=== PATIENT | male | born 1955 | race Caucasian/White ===

== ENCOUNTER 2017-02-08 10:07 | Emergency (ER) | payer BC ==
[~2017-02-08 10:07] MED LIST: ISOVUE-370 76%-LOCM 1 ML ONE; Iopamidol 370 76% 50 ML VIAL FS ONE
[2017-02-08] MEDS ORDERED: Ondansetron HCl/PF 4 MG/2 ML Vial ONE (10:38)
[2017-02-08 10:56] LABS: #Basophils 0.1 thou/uL (0.0-0.2); #Eosinphils 0.3 thou/uL (0.0-0.7); #Lymphocytes 2.9 thou/uL (1.20-3.40); #Monocytes 0.7 thou/uL (0.11-0.59); #Neutrophils 5.4 thou/uL (1.40-6.50); %Basophils 0.8 % (0.0-1.0); %Eosinophils 2.8 % (0.0-10.0); %Lymphocytes 30.8 % (21.0-51.0); %Monocytes 7.7 % (0.0-10.0); Hematocrit 53.2 % (42.0-52.0); Mean Platelet Volume 6.5 fL (7.4-10.4); Red Blood Cell (RBC) Count 5.44 mill/uL (4.70-6.10); White Blood Cell (WBC) Count 9.3 thou/uL (4.8-10.8)
[2017-02-08] MEDS ORDERED: Piperacillin/Tazobactam 3.375 GM VIAL ONE (11:10)
[2017-02-08 11:30] LABS: ALT (SGPT) 41 U/L (8-55); AST (SGOT) 24 U/L (5-34); Alkaline Phosphatase 72 U/L (40-150); Anion Gap 12 mmol/L (10-20); BUN (Urea Nitrogen) 14 mg/dL (8.4-25.7); Bilirubin, Total 0.6 mg/dL (0.2-1.2); Calc. Creatinine Clearance 0 mL/min (70-130); Calcium 9.3 mg/dL (7.8-10.44); Carbon Dioxide 26 mmol/L (23-31); Chloride 103 mmol/L (98-107); Estimated GFR-MDRD 61; Globulin 3.3 g/dL (2.4-3.5); Protein, Total 7.3 g/dL (5.8-8.1)
[2017-02-08 11:44] LABS: Bilirubin Negative (Negative); Blood, Urine Trace (Negative); Glucose, Urine (Dipstick) Negative (Negative); Ketone, Urine Negative (Negative); Nitrite Negative (Negative); Protein, Urine (Dipstick) Negative (Neg-Trace); Urobilinogen 0.2 mg/dL (0.2-1.0)
[2017-02-08 11:56] LABS: Squamous Epithelial 0-3 HPF (0-3); WBC/HPF 0-3 HPF (0-3)
[2017-02-08 11:57] LABS: Bacteria/HPF None Seen HPF (None Seen); Hyaline Casts/LPF 0-3 HYALINE CAST LPF (0-3 Hyaline)
--- NOTE | 2017-02-08 12:39 | CT ---
CONTRAST ENHANCED CT IMAGES OF ABDOMEN AND PELVIS: DATE: 02/08/17. FINDINGS: IV and oral contrast was given. The lung bases are unremarkable. No evidence of free intraperitoneal air is seen. The liver is unremarkable, except for some small hypodense areas most compatible with hepatic cysts. The gallbladder is unremarkable. The spleen is unremarkable. Pancreas is unremarkable. Adrenal glands are unremarkable. Right renal cortical and parapelvic cysts seen. The left kidney is unremarkable. No evidence of re nal calculi or evidence of hydronephrosis is seen. Atherosclerotic calcification of the abdominal aorta is seen. The small bowel loops are unremarkable. A normal appendix is seen. Descending and sigmoid colonic diverticula are seen. There is mild abdominal aortic aneurysmal dilatation in the infrarenal abdominal aorta. Maximum abd ominal diameter measures 2.7 x 2.6 cm in the infrarenal abdominal aorta. This compares with a diame ter of approximately 2.1 cm just at the level of the renal arteries. IMPRESSION: 1. Small infrarenal abdominal aortic area of aneurysmal dilatation. 2. Descending colonic diverticulosis. POS: PAMELA
== END 2017-02-08 13:35 | disposition home or self-care (01) ==
LOC: ERS 10:07
DX: I71.4 Abdominal aortic aneurysm, without rupture (principal); N28.1 Cyst of kidney, acquired; F41.9 Anxiety disorder, unspecified; F17.210 Nicotine dependence, cigarettes, uncomplicated
CPT/HCPCS: 36415; 74177; 80053; 81003; 81015; 85025; 96365; 96375; J2270; J2405; J2543

== ENCOUNTER 2021-03-14 12:15 | Inpatient (IN) | payer MEDICARE ==
[2021-03-18 11:47] VITALS: BMI 25.0
[2021-03-19] MEDS ORDERED: cefOXitin Sodium/Dextrose 2 GM/50 ML BAG ONE (09:24)
[2021-03-19] MEDS ORDERED: Fentanyl 250 MCG/5 ML VIAL ONE (10:29)
[2021-03-19] MEDS ORDERED: SUGAMMADEX SODIUM 200 MG/2 ML VIAL ONE (10:29)
[2021-03-19] MEDS ORDERED: PHENYLEPHRINE-NS 100 MCG/ML 10 ML SYRINGE ONE (10:49)
[2021-03-19] MEDS ORDERED: Ondansetron PF 4 MG/2 ML Vial ONE (10:49)
[2021-03-19] MEDS ORDERED: Lidocaine 1% PF 5 ML VIAL ONE (10:49)
[2021-03-19] MEDS ORDERED: Rocuronium Bromide 10 MG/ML (10ML VIAL) ONE (10:49)
[2021-03-19] MEDS ORDERED: PROPOFOL 200 MG/20 ML VIAL ONE (10:49)
[2021-03-19] MEDS ORDERED: Ketorolac Tromethamine 30 MG/ML VIAL ONE (10:49)
[2021-03-19] MEDS ORDERED: Dexamethasone 20 MG/5 ML VIAL ONE (10:49)
[2021-03-19] MEDS ORDERED: Bupivacaine HCl 0.5%/Epinephrine 1:200,000/PF 30 ml Vial ONE (10:49)
[2021-03-19] MEDS ORDERED: Glycopyrrolate 0.2 MG/ML 5 ML SYRINGE ONE (10:49)
[2021-03-19] MEDS ORDERED: Promethazine HCl 25 MG/ML VIAL IVPB PRN (11:58)
[2021-03-19] MEDS ORDERED: Ondansetron HCl/PF 4 MG/2 ML Vial IVP PRN (11:58)
[2021-03-19] MEDS ORDERED: Promethazine HCl 25 MG/ML VIAL IM PRN ×2 (11:58→13:15)
[2021-03-19] MEDS ORDERED: hydrALAZINE 20 MG/ML VIAL SLOW IVP PRN (13:15)
[2021-03-19] MEDS ORDERED: Ondansetron PF 4 MG/2 ML Vial IVP PRN (13:15)
[2021-03-19] MEDS ORDERED: Fentanyl 100 MCG/2 ML VIAL ONE (13:38)
[2021-03-19] MEDS ORDERED: FLU VACC QS2021-22(65YR UP)/PF 240 MCG/0.7 ML SYRINGE IM ONE (15:45)
[2021-03-19] MEDS: D5 1/2 NS w/20 mEq KCL 1,000 ML IV SCH (16:52)
[2021-03-19] MEDS: Ketorolac Tromethamine 30 MG/ML VIAL IVP PRN (16:53)
[2021-03-19] MEDS: Fentanyl 100 MCG/2 ML VIAL SLOW IVP PRN ×2 (18:21→21:03)
[2021-03-19] MEDS: Famotidine 20 MG TAB PO SCH (20:38)
[2021-03-19] MEDS: cefOXitin 2 GM in Sodium Chloride 0.9% 100 ML IVPB SCH (20:38)
[2021-03-19] MEDS: Famotidine/PF 20 mg/2ml Vial SLOW IVP SCH (20:38)
[2021-03-20] MEDS: D5 1/2 NS w/20 mEq KCL 1,000 ML IV SCH ×2 (02:54→02:55)
[2021-03-20] MEDS: cefOXitin 2 GM in Sodium Chloride 0.9% 100 ML IVPB SCH (02:56)
[2021-03-20] MEDS: Fentanyl 100 MCG/2 ML VIAL SLOW IVP PRN ×2 (02:58)
[2021-03-20 06:18] LABS: #Lymphocytes 1.6 thou/uL (1.20-3.40); #Monocytes 1.2 thou/uL (0.11-0.59); #Neutrophils 12.8 thou/uL (1.40-6.50); %Eosinophils 0.1 % (0.0-10.0); %Lymphocytes 10.4 % (21.0-51.0); %Monocytes 7.9 % (0.0-10.0); %Neutrophils 81.6 % (42.0-75.0); Hemoglobin 14.2 g/dL (14.0-18.0); Mean Corpuscular HGB CONC 33.4 g/dL (32.0-36.0); Mean Corpuscular Hemoglobin 33.4 pg (27.0-31.0); Mean Corpuscular Volume 99.9 fL (78.0-98.0); Mean Platelet Volume 6.5 fL (7.4-10.4); Platelet Count 203 thou/uL (130-400); RBC Distribution Width 12.1 % (11.5-14.5); Red Blood Cell (RBC) Count 4.27 mill/uL (4.70-6.10); White Blood Cell (WBC) Count 15.7 thou/uL (4.8-10.8)
[2021-03-20 06:34] LABS: Anion Gap 10 mmol/L (10-20); BUN (Urea Nitrogen) 10 mg/dL (8.4-25.7); Calc. Creatinine Clearance 70 mL/min (70-130); Calcium 8.7 mg/dL (7.8-10.44); Carbon Dioxide 22 mmol/L (23-31); Chloride 107 mmol/L (98-107); Glucose 137 mg/dL (80-115); Potassium 4.9 mmol/L (3.5-5.1); Sodium 134 mmol/L (136-145)
[2021-03-20] MEDS: Famotidine 20 MG TAB PO SCH ×2 (08:05→20:34)
[2021-03-20] MEDS ORDERED: FLU VACC QS2021-22(65YR UP)/PF 240 MCG/0.7 ML SYRINGE IM ONE (09:00)
[2021-03-20] MEDS: Ketorolac Tromethamine 30 MG/ML VIAL IVP PRN (09:06)
[2021-03-20] MEDS: Famotidine/PF 20 mg/2ml Vial SLOW IVP SCH ×2 (10:21→20:34)
[2021-03-20] MEDS: Enoxaparin Sodium 40 MG/0.4 ML SYRINGE SC SCH (10:39)
[2021-03-20] MEDS: HYDROcodone/Acetaminophen 7.5/325 mg Tablet PO PRN ×2 (11:21→18:28)
[2021-03-20] MEDS ORDERED: Valsartan 80 MG TAB PO SCH ×2 (12:00→21:00)
[2021-03-20] MEDS ORDERED: Escitalopram Oxalate 10 mg Tablet PO SCH (12:00)
[2021-03-20] MEDS ORDERED: Acetaminophen 325 MG TAB PO PRN (12:52)
[2021-03-20] MEDS ORDERED: ALPRAZolam 0.5 MG TAB PO PRN (13:11)
[2021-03-21] MEDS: HYDROcodone/Acetaminophen 7.5/325 mg Tablet PO PRN (07:16)
[2021-03-21] MEDS: Famotidine 20 MG TAB PO SCH (07:16)
[2021-03-21 08:29] VITALS: BP 126/83; TEMP 98
[2021-03-21] MEDS: Enoxaparin Sodium 40 MG/0.4 ML SYRINGE SC SCH (09:10)
[2021-03-21] MEDS: Famotidine/PF 20 mg/2ml Vial SLOW IVP SCH (09:12)
== END 2021-03-21 10:20 | disposition home or self-care (01) | DRG 331 ==
LOC: EDSTATUS 12:15 → SURG A 03-19 07:52 → SURG B 03-19 15:51
PROVIDERS: ADMIT Surgery; ATTEND Surgery
PROC: 0DBF4ZZ Excision of Right Large Intestine, Percutaneous Endoscopic Approach (ICD-10-PCS; principal; 2021-03-19)
DX: K63.5 Polyp of colon (principal); Z20.822 Contact with and (suspected) exposure to COVID-19; I71.4 Abdominal aortic aneurysm, without rupture; F41.9 Anxiety disorder, unspecified; E78.00 Pure hypercholesterolemia, unspecified; E78.5 Hyperlipidemia, unspecified; G47.30 Sleep apnea, unspecified; F17.210 Nicotine dependence, cigarettes, uncomplicated; Z79.899 Other long term (current) drug therapy
CPT/HCPCS: 36415; 80048; 85025; 88307; 90471; 90662; 90732; G0008; G0009; J0694; J1100; J1650; J1885; J2405; J2704; J3010; J3480; J3490; S0028

== ENCOUNTER 2021-03-14 12:18 | Outpatient (CLI) | payer MEDICARE ==
[2021-03-14 13:50] LABS: Anion Gap 16 mmol/L (10-20); BUN (Urea Nitrogen) 13 mg/dL (8.4-25.7); Calc. Creatinine Clearance 0 mL/min (70-130); Calcium 9.1 mg/dL (7.8-10.44); Carbon Dioxide 23 mmol/L (23-31); Chloride 104 mmol/L (98-107); Glucose 111 mg/dL (80-115); Potassium 4.1 mmol/L (3.5-5.1); Sodium 139 mmol/L (136-145)
[2021-03-14 14:10] LABS: #Basophils 0.1 10x3/uL (0.0-0.2); #Eosinphils 0.2 10x3/uL (0.0-0.5); #Monocytes 0.6 10x3/uL (0.0-1.1); #Neutrophils 5.1 10x3/uL (1.5-8.4); %Basophils 0.9 % (0.0-2.0); %Eosinophils 2.4 % (0.0-6.0); %Lymphocytes 29.9 % (18.0-47.0); %Monocytes 7.2 % (0.0-10.0); %Neutrophils 59.3 % (40.0-75.0); Hemoglobin 15.6 g/dL (13.5-17.5); Mean Corpuscular HGB CONC 34.3 g/dL (32.0-36.0); Mean Corpuscular Hemoglobin 32.5 pg (27.0-33.0); Mean Corpuscular Volume 94.8 fl (81.2-95.1); Mean Platelet Volume 9.2 fl (7.4-10.4); Platelet Count 228 10x3/uL (150-450); RBC Distribution Width 13.3 % (11.5-14.5); White Blood Cell (WBC) Count 8.7 10x3/uL (3.5-10.5)
[2021-03-15 11:54] LABS: SARS-CoV-2 PCR by NAA Not Detected (NotDetected)
== END 2021-03-14 12:19 | disposition home or self-care (01) ==
LOC: LABBT 12:18
PROVIDERS: ATTEND Surgery
DX: Z01.818 Encounter for other preprocedural examination (principal); K63.9 Disease of intestine, unspecified; Z20.822 Contact with and (suspected) exposure to COVID-19
CPT/HCPCS: 80048; 85025; 93005; U0003; U0005; 93010

== ENCOUNTER 2022-12-18 10:59 | Outpatient (CLI) | payer MEDICARE, OTHER ==
[2022-12-18 12:47] LABS: Hematocrit 46.2 % (38.8-50.0); Hemoglobin 15.7 g/dL (13.5-17.5); Mean Corpuscular Hemoglobin 33.1 pg (27.0-33.0); Mean Corpuscular Volume 97.5 fl (81.2-95.1); Mean Platelet Volume 9.2 fl (7.4-10.4); Platelet Count 248 10x3/uL (150-450); RBC Distribution Width 13.1 % (11.5-14.5); Red Blood Cell (RBC) Count 4.74 10x6/uL (4.32-5.72)
[2022-12-18 12:59] LABS: PTT 27.9 sec (22.0-33.0); Prothrombin Time 10.4 sec (9.5-12.1)
[2022-12-18 13:08] LABS: ALT (SGPT) 34 U/L (8-55); AST (SGOT) 31 U/L (5-34); Albumin 4.1 g/dL (3.4-4.8); Alkaline Phosphatase 68 U/L (40-110); Anion Gap 16 mmol/L (10-20); BUN (Urea Nitrogen) 14 mg/dL (8.4-25.7); Bilirubin, Total 0.7 mg/dL (0.2-1.2); Calc. Creatinine Clearance 0 mL/min (70-130); Calcium 9.4 mg/dL (7.8-10.44); Carbon Dioxide 23 mmol/L (23-31); Chloride 102 mmol/L (98-107); Estimated GFR 70; Globulin 2.8 g/dL (2.4-3.5); Glucose 106 mg/dL (80-115); Potassium 4.3 mmol/L (3.5-5.1); Protein, Total 6.9 g/dL (5.8-8.1); Sodium 137 mmol/L (136-145)
[2022-12-18 13:31] LABS: Bilirubin Neg (Negative); Blood, Urine Negative (Negative); Clarity Clear (Clear); Glucose, Urine (Dipstick) Normal (Negative); Ketone, Urine Negative (Negative); Leukocyte 100 (Negative); Nitrite Negative (Negative); Protein, Urine (Dipstick) Negative (Neg-Trace); Urobilinogen Normal mg/dL (Less than 2)
[2022-12-18 13:47] LABS: Bacteria/HPF 1+ HPF (None Seen); RBC/HPF 0-3 HPF (0-3); Squamous Epithelial 0-3 HPF (0-3)
== END 2022-12-18 11:00 | disposition home or self-care (01) ==
LOC: LABBT 10:59
PROVIDERS: ATTEND Urology
DX: Z01.818 Encounter for other preprocedural examination (principal); I71.40 Abdominal aortic aneurysm, without rupture, unspecified; C61 Malignant neoplasm of prostate; Z85.038 Personal history of other malignant neoplasm of large intestine
CPT/HCPCS: 71046; 80053; 81001; 85027; 85610; 85730; 87086

== ENCOUNTER 2022-12-18 11:30 | Inpatient (IN) | payer OTHER ==
[2022-12-25] MEDS ORDERED: Fentanyl 250 MCG/5 ML VIAL ONE (06:47)
[2022-12-25] MEDS ORDERED: fentaNYL 50 mcg/mL 1 mL Vial ONE ×4 (07:17→15:33)
[2022-12-25] MEDS ORDERED: Midazolam HCl 2 mg/2 ml Vial ONE (07:17)
[2022-12-25] MEDS ORDERED: ceFOXitin 1 GM VIAL ONE ×2 (07:24→10:02)
[2022-12-25] MEDS ORDERED: Sodium Chloride 0.9% 100 ML ONE (07:24)
[2022-12-25] MEDS ORDERED: Famotidine/PF 20 mg/2ml Vial ONE (07:37)
[2022-12-25] MEDS ORDERED: Ondansetron PF 4 MG/2 ML Vial ONE (07:56)
[2022-12-25] MEDS ORDERED: Glycopyrrolate 0.2 MG/ML 5 ML SYRINGE ONE (07:56)
[2022-12-25] MEDS ORDERED: PROPOFOL 200 MG/20 ML VIAL ONE (07:56)
[2022-12-25] MEDS ORDERED: Rocuronium Bromide 10 MG/ML (10ML VIAL) ONE (07:56)
[2022-12-25] MEDS ORDERED: PHENYLEPHRINE-NS 100 MCG/ML 10 ML SYRINGE ONE (07:56)
[2022-12-25] MEDS ORDERED: Dexamethasone 20 MG/5 ML VIAL ONE (07:56)
[2022-12-25] MEDS ORDERED: Lidocaine 1% PF 5 ML VIAL ONE (07:56)
[2022-12-25] MEDS ORDERED: NEOSTIGMINE 3 MG/3 ML SYR 3 MG/3 ML SYRINGE ONE (07:56)
[2022-12-25] MEDS ORDERED: Bupivacaine PF 0.5% 30 ML VIAL ONE (08:14)
[2022-12-25] MEDS ORDERED: EPINEPHrine 1 MG/ML AMP ONE (09:34)
[2022-12-25] MEDS ORDERED: Lidocaine 1% (PF) 30 ML VIAL ONE (09:34)
[2022-12-25] MEDS ORDERED: Albumin 5% 500 ML ONE (11:05)
[2022-12-25] MEDS ORDERED: Rocuronium Bromide 50 MG/5 ML VIAL ONE (11:19)
[2022-12-25] MEDS ORDERED: HYDROmorphone 0.5 MG/0.5 ML SYRINGE ONE (11:19)
[2022-12-25] MEDS ORDERED: Promethazine HCl 25 MG/ML VIAL IM PRN (12:18)
[2022-12-25] MEDS ORDERED: Ondansetron HCl/PF 4 MG/2 ML Vial IVP PRN (12:18)
[2022-12-25] MEDS ORDERED: fentaNYL PF 100 MCG/2 ML SYRINGE ONE (12:46)
[2022-12-25 13:11] LABS: #Monocytes 0.4 thou/uL (0.11-0.59); #Neutrophils 16.2 thou/uL (1.40-6.50); %Basophils 0.2 % (0.0-1.0); %Eosinophils 0.1 % (0.0-10.0); %Lymphocytes 4.1 % (21.0-51.0); %Monocytes 2.2 % (0.0-10.0); %Neutrophils 93.1 % (42.0-75.0); Hematocrit 38.9 % (42.0-52.0); Hemoglobin 12.9 g/dL (14.0-18.0); Mean Corpuscular HGB CONC 33.2 g/dL (32.0-36.0); Mean Corpuscular Hemoglobin 33.7 pg (27.0-31.0); Mean Corpuscular Volume 101.6 fl (78.0-98.0); Mean Platelet Volume 8.9 fL (7.4-10.4); Platelet Count 180 10x3/uL (130-400); RBC Distribution Width 13.7 % (11.5-14.5); Red Blood Cell (RBC) Count 3.83 mill/uL (4.70-6.10); White Blood Cell (WBC) Count 17.4 10x3/uL (4.8-10.8)
[2022-12-25 13:26] LABS: Anion Gap 14 mmol/L (10-20); BUN (Urea Nitrogen) 12 mg/dL (8.4-25.7); Calc. Creatinine Clearance 69 mL/min (70-130); Calcium 8.2 mg/dL (7.8-10.44); Carbon Dioxide 19 mmol/L (23-31); Chloride 111 mmol/L (98-107); Estimated GFR 67; Glucose 141 mg/dL (80-115); Potassium 4.5 mmol/L (3.5-5.1); Sodium 139 mmol/L (136-145)
[2022-12-25] MEDS ORDERED: Acetaminophen 500 MG TAB PO PRN (14:01)
[2022-12-25] MEDS ORDERED: Sodium Chloride 0.9% 1,000 ML IV SCH (14:01)
[2022-12-25] MEDS ORDERED: Morphine 2 MG/ML VIAL SLOW IVP PRN (14:01)
[2022-12-25] MEDS ORDERED: Mag-Al 1200 mg/1200 mg/30 ML UDCUP PO PRN (14:01)
[2022-12-25] MEDS ORDERED: diphenhydrAMINE 25 MG CAP PO PRN (14:01)
[2022-12-25] MEDS ORDERED: Oxybutynin 5 MG TAB PO PRN (14:01)
[2022-12-25] MEDS ORDERED: HYDROcodone/Acetaminophen 5/325 mg Tablet PO PRN (14:01)
[2022-12-25] MEDS ORDERED: hydrALAZINE 20 MG/ML VIAL SLOW IVP PRN (14:01)
[2022-12-25] MEDS ORDERED: Hyoscyamine SL 0.125 MG TAB SL PRN (14:01)
[2022-12-25] MEDS ORDERED: Ondansetron PF 4 MG/2 ML Vial IVP PRN (14:01)
[2022-12-25] MEDS ORDERED: ALPRAZolam 0.5 MG TAB PO PRN (14:01)
[2022-12-25] MEDS: HYDROcodone/Acetaminophen 5/325 mg Tablet PO PRN ×2 (17:10→21:46)
[2022-12-25] MEDS: cefOXitin 1.5 GM, Admixture Fee 1 EACH in Sodium Chloride 0.9% 100 ML IVPB SCH (18:38)
[2022-12-25] MEDS: Morphine 4 MG/ML VIAL SLOW IVP PRN (18:45)
[2022-12-25] MEDS: Atorvastatin Calcium 20 MG TAB PO SCH (21:47)
[2022-12-25] MEDS: Docusate 100 MG CAP PO SCH ×2 (21:47)
[2022-12-26] MEDS: HYDROcodone/Acetaminophen 5/325 mg Tablet PO PRN ×4 (02:45→17:52)
[2022-12-26] MEDS: cefOXitin 1.5 GM, Admixture Fee 1 EACH in Sodium Chloride 0.9% 100 ML IVPB SCH ×2 (02:46→09:06)
[2022-12-26 07:55] LABS: #Monocytes 1.3 thou/uL (0.11-0.59); #Neutrophils 10.9 thou/uL (1.40-6.50); %Basophils 0.2 % (0.0-1.0); %Eosinophils 0.1 % (0.0-10.0); %Lymphocytes 13.2 % (21.0-51.0); %Monocytes 9.3 % (0.0-10.0); %Neutrophils 76.8 % (42.0-75.0); Hematocrit 35.6 % (42.0-52.0); Hemoglobin 11.6 g/dL (14.0-18.0); Mean Corpuscular HGB CONC 32.6 g/dL (32.0-36.0); Mean Corpuscular Hemoglobin 33.3 pg (27.0-31.0); Mean Corpuscular Volume 102.3 fl (78.0-98.0); Mean Platelet Volume 9.2 fL (7.4-10.4); Platelet Count 166 10x3/uL (130-400); RBC Distribution Width 13.3 % (11.5-14.5); Red Blood Cell (RBC) Count 3.48 mill/uL (4.70-6.10); White Blood Cell (WBC) Count 14.2 10x3/uL (4.8-10.8)
[2022-12-26 08:13] LABS: Anion Gap 11 mmol/L (10-20); BUN (Urea Nitrogen) 11 mg/dL (8.4-25.7); Calc. Creatinine Clearance 83 mL/min (70-130); Calcium 8.2 mg/dL (7.8-10.44); Carbon Dioxide 20 mmol/L (23-31); Chloride 109 mmol/L (98-107); Estimated GFR 81; Glucose 125 mg/dL (80-115); Potassium 3.8 mmol/L (3.5-5.1); Sodium 136 mmol/L (136-145)
[2022-12-26] MEDS: Docusate 100 MG CAP PO SCH ×2 (09:01→20:29)
[2022-12-26] MEDS: Escitalopram Oxalate 10 mg Tablet PO SCH (10:36)
[2022-12-26] MEDS: Valsartan 80 MG TAB PO SCH (10:36)
[2022-12-26] MEDS: Morphine 4 MG/ML VIAL SLOW IVP PRN ×2 (10:37→20:30)
[2022-12-26 13:33] VITALS: BMI 25.0
[2022-12-26] MEDS: Atorvastatin Calcium 20 MG TAB PO SCH (20:30)
[2022-12-27] MEDS: HYDROcodone/Acetaminophen 5/325 mg Tablet PO PRN ×2 (04:40→08:20)
[2022-12-27 06:55] LABS: #Eosinphils 0.2 thou/uL (0.0-0.7); #Monocytes 1.1 thou/uL (0.11-0.59); #Neutrophils 8.1 thou/uL (1.40-6.50); %Basophils 0.3 % (0.0-1.0); %Eosinophils 1.7 % (0.0-10.0); %Lymphocytes 18.1 % (21.0-51.0); %Monocytes 9.4 % (0.0-10.0); %Neutrophils 70.2 % (42.0-75.0); Hematocrit 33.1 % (42.0-52.0); Hemoglobin 11.1 g/dL (14.0-18.0); Mean Corpuscular HGB CONC 33.5 g/dL (32.0-36.0); Mean Corpuscular Volume 101.5 fl (78.0-98.0); Mean Platelet Volume 9.1 fL (7.4-10.4); Platelet Count 152 10x3/uL (130-400); RBC Distribution Width 13.2 % (11.5-14.5); Red Blood Cell (RBC) Count 3.26 mill/uL (4.70-6.10); White Blood Cell (WBC) Count 11.5 10x3/uL (4.8-10.8)
[2022-12-27 07:19] LABS: Anion Gap 9 mmol/L (10-20); BUN (Urea Nitrogen) 12 mg/dL (8.4-25.7); Calc. Creatinine Clearance 82 mL/min (70-130); Calcium 8.5 mg/dL (7.8-10.44); Carbon Dioxide 23 mmol/L (23-31); Chloride 109 mmol/L (98-107); Estimated GFR 79; Glucose 105 mg/dL (80-115); Potassium 3.8 mmol/L (3.5-5.1); Sodium 137 mmol/L (136-145)
[2022-12-27] MEDS: Docusate 100 MG CAP PO SCH (08:18)
[2022-12-27 11:10] VITALS: BP 113/69; TEMP 98.1
[2022-12-27] MEDS: Escitalopram Oxalate 10 mg Tablet PO SCH (12:04)
[2022-12-27] MEDS: Valsartan 80 MG TAB PO SCH (12:04)
== END 2022-12-27 12:23 | disposition home or self-care (01) | DRG 708 ==
LOC: SURG A 12-25 06:07 → SURG B 12-25 16:27
PROVIDERS: ADMIT Urology; ATTEND Urology
PROC: 0VT00ZZ Resection of Prostate, Open Approach (ICD-10-PCS; principal; 2022-12-25)
PROC: 07BC0ZX Excision of Pelvis Lymphatic, Open Approach, Diagnostic (ICD-10-PCS; 2022-12-25)
PROC: 8E0W0CZ Robotic Assisted Procedure of Trunk Region, Open Approach (ICD-10-PCS; 2022-12-25)
DX: C61 Malignant neoplasm of prostate (principal); E78.00 Pure hypercholesterolemia, unspecified; I71.40 Abdominal aortic aneurysm, without rupture, unspecified
CPT/HCPCS: 36415; 80048; 82570; 85025; 86850; 86900; 86901; 88305; 88341; 88342; C1713; J0171; J0694; J1100; J1170; J2001; J2250; J2270; J2405; J2704; J3010; J3490; J7050; P9045; S0020; S0028

== ENCOUNTER 2023-01-11 14:05 | Emergency (ER) | payer OTHER ==
[2023-01-11] MEDS ORDERED: HYDROcodone/Acetaminophen 10/325 mg Tablet ONE (14:52)
[2023-01-11 15:00] LABS: Bilirubin Negative (Negative); Blood, Urine 2+ (Negative); CAUTI Indications for Culture Urological Procedure; Clarity Turbid (Clear); Glucose, Urine (Dipstick) Normal (Negative); Ketone, Urine Negative (Negative); Leukocyte 500 Leu/uL (Negative); Nitrite 1+ (Negative); Protein, Urine (Dipstick) 30 mg/dL (Neg-Trace); RBC/HPF 21-50 HPF (0-3); Specific Gravity, Urine 1.015 (1.002-1.036); Squamous Epithelial 0-3 HPF (0-3); Urobilinogen Normal mg/dL (Less than 2); WBC/HPF Greater than 50 HPF (0-3); pH, Urine 5.5 (5.0-9.0)
[2023-01-11 15:01] LABS: Bacteria/HPF 1+ HPF (None Seen)
[2023-01-11 15:02] LABS: Urine Culture Reflex Yes Yes
[2023-01-11] MEDS ORDERED: Cefdinir 300 MG CAP PO SCH (15:45)
== END 2023-01-11 15:59 | disposition home or self-care (01) ==
LOC: ERS 14:05
DX: N39.0 Urinary tract infection, site not specified (principal); I10 Essential (primary) hypertension; E78.5 Hyperlipidemia, unspecified; F17.210 Nicotine dependence, cigarettes, uncomplicated; Z79.899 Other long term (current) drug therapy
CPT/HCPCS: 81001; 87077; 87086; 87186; 99283

== ENCOUNTER 2023-01-11 19:41 | Emergency (ER) | payer OTHER | END 2023-01-11 20:21 | disposition home or self-care (01) | LOC: ERS 19:41 | DX: Z76.0 Encounter for issue of repeat prescription (principal) | CPT/HCPCS: 99281 ==

== ENCOUNTER 2025-01-13 07:53 | Outpatient (CLI) | payer OTHER ==
[2025-01-13 08:26] LABS: Estimated GFR - POC 46.0
[2025-01-13] MEDS ORDERED: Iopamidol 370 76% 100 ML VIAL ONE (11:19)
== END 2025-01-13 07:54 | disposition home or self-care (01) ==
LOC: CT 07:53
PROVIDERS: ATTEND Thoracic Surgery (Cardiothoracic Vascular Surgery)
DX: I71.40 Abdominal aortic aneurysm, without rupture, unspecified (principal); K57.30 Diverticulosis of large intestine without perforation or abscess without bleeding; N28.0 Ischemia and infarction of kidney
CPT/HCPCS: 36415; 74174; 82565; Q9967